=== PATIENT | female | born 1965 | race Caucasian/White ===

== ENCOUNTER 2017-02-02 23:20 | Emergency (ER) | payer MEDICARE ==
[~2017-02-02] VITALS: Ht 157.5 cm; Wt 66.2 kg
[2017-02-02] MEDS ORDERED: OXYCODONE HCL5 MG PO (23:45)
[2017-02-02] MEDS ORDERED: LOPRESSOR25 MG PO (23:46)
[2017-02-02] MEDS ORDERED: EFFEXOR XR75 MG PO (23:46)
[2017-02-02] MEDS ORDERED: LASIX 40 MG40 MG/TAB PO (23:46)
[2017-02-02] MEDS ORDERED: VISTARIL25 MG PO (23:47)
[2017-02-02] MEDS ORDERED: GABAPENTIN100 MG PO (23:47)
[2017-02-02] MEDS ORDERED: XANAX0.5 MG PO (23:48)
[2017-02-02] MEDS ORDERED: TRAZODONE50 MG PO (23:48)
[2017-02-02] MEDS ORDERED: ADDERALL30 MG PO (23:50)
[2017-02-02] MEDS ORDERED: ULTRAM50 M1 PO (23:54)
[2017-02-03 00:21] VITALS: BP 124/77
== END 2017-02-03 00:19 | disposition home or self-care (01) ==
LOC: ED 23:20
DX: M72.2 Plantar fascial fibromatosis (principal); W22.8XXA Striking against or struck by other objects, initial encounter; Y92.009 Unspecified place in unspecified non-institutional (private) residence as the place of occurrence of the external cause

== ENCOUNTER 2018-04-08 18:21 | Emergency (ER) | payer MEDICARE ==
[~2018-04-08] VITALS: Ht 157.5 cm; Wt 60.0 kg
[~2018-04-08 18:21] MED LIST: ADDERALL30 MG PO; EFFEXOR XR75 MG PO; GABAPENTIN100 MG PO; LASIX 40 MG40 MG/TAB PO; LOPRESSOR25 MG PO; OXYCODONE HCL5 MG PO; TRAZODONE50 MG PO; ULTRAM50 M1 PO; VISTARIL25 MG PO; XANAX0.5 MG PO
[2018-04-08] MEDS ORDERED: AMOXICILLIN500 MG PO (20:13)
[2018-04-08] MEDS ORDERED: NAPROSYN500 MG PO (20:13)
[2018-04-08 20:39] VITALS: BP 158/89
== END 2018-04-08 20:35 | disposition home or self-care (01) ==
LOC: ED 18:21
PROC: 0HQGXZZ Repair Left Hand Skin, External Approach (ICD-10-PCS; principal; 2018-04-08)
DX: S60.512A Abrasion of left hand, initial encounter (principal); S61.235A Puncture wound without foreign body of left ring finger without damage to nail, initial encounter; S63.615A Unspecified sprain of left ring finger, initial encounter; C90.00 Multiple myeloma not having achieved remission; N18.9 Chronic kidney disease, unspecified; I50.9 Heart failure, unspecified; F17.200 Nicotine dependence, unspecified, uncomplicated; W23.0XXA Caught, crushed, jammed, or pinched between moving objects, initial encounter

== ENCOUNTER 2018-08-09 09:51 | Observation (INO) | payer MEDICARE ==
[~2018-08-09] VITALS: Ht 157.5 cm; Wt 68.0 kg
[~2018-08-09 09:51] MED LIST changes: +AMOXICILLIN500 MG PO; +NAPROSYN500 MG PO
[2018-08-09 11:00] LABS: HEMATOCRIT 41.3 % (37.0-47.0); HEMOGLOBIN 13.2 g/dl (12.0-16.0); IMMATURE GRANULOCYTES 0.4 % (0.0-5.0); MEAN CELL VOLUME 87.5 fL CALC (80.0-100.0); NEUT# 5.66 thou/uL (2.00-7.15); RED BLOOD COUNT 4.72 mill/uL (4.20-5.60); RED CELL DISTRI WIDTH 13.6 % (11.5-15.5)
[2018-08-09] MEDS ORDERED: OXYCODONE HCL5 MG PO (11:00)
[2018-08-09] MEDS ORDERED: PROZAC40 MG PO (11:00)
[2018-08-09 11:12] LABS: ALBUMIN 4.6 g/dL (3.2-5.0); ALKALINE PHOSPHATASE 104 u/l (38-126); ANION GAP 14 (6-22 (CALC)); BILIRUBIN, TOTAL 0.6 mg/dL (0.0-1.4); BUN 19 mg/dL (7-17); BUN/CREATININE RATIO 14 (12-20 (CALC)); CARBON DIOXIDE 25 mmol/l (22-30); CHLORIDE 106 mmol/l (95-108); CREATININE 1.3 mg/dL (0.5-1.0); GFR 43 ML/MIN (>=60 (CALC)); GFR FOR AFR.AMER. 51 ML/MIN (>=60 (CALC)); SGOT/AST 38 u/l (14-36); SODIUM 140 mmol/l (137-146); TOTAL PROTEIN 7.9 g/dL (6.3-8.2)
[2018-08-09 11:24] LABS: MYOGLOBIN 45 ng/mL (0 - 62)
[2018-08-09 12:35] VITALS: BP 153/81
[2018-08-09 16:00] VITALS: BP 144/89
[2018-08-09 19:49] VITALS: BP 153/89
[2018-08-09 23:17] VITALS: BP 113/71
[2018-08-10 02:55] LABS: URINE BLOOD DIPSTICK NEGATIVE (NEGATIVE); URINE COLOR YELLOW; URINE GLUCOSE - DIPSTICK NEGATIVE (NEGATIVE); URINE KETONE TRACE mg/dL (NEGATIVE); URINE LEUK ESTERASE NEGATIVE (NEGATIVE); URINE NITRITE - DIPSTICK NEGATIVE (Negative); URINE PH 5.5 (4.5-8.0); URINE PROTEIN - DIPSTICK NEGATIVE (NEG-TRACE); URINE SPECIFIC GRAVITY >=1.030; URINE UROBILINOGEN - DIPSTICK 0.2 E.U./dL (0.2)
[2018-08-10 02:58] LABS: URINE BILIRUBIN - DIPSTICK NEGATIVE (NEGATIVE)
[2018-08-10 04:32] VITALS: BP 130/74
[2018-08-10 06:24] LABS: HEMATOCRIT 40.1 % (37.0-47.0); HEMOGLOBIN 12.8 g/dl (12.0-16.0); IMMATURE GRANULOCYTES 0.9 % (0.0-5.0); MEAN CELL VOLUME 87.6 fL CALC (80.0-100.0); MEAN CORPUSCULAR HGB 27.9 pG CALC (26.0-32.0); MEAN CORPUSCULAR HGB CONC 31.9 g/L CALC (32.0-36.0); NEUT# 5.8 thou/uL (2.00-7.15); RED BLOOD COUNT 4.58 mill/uL (4.20-5.60); RED CELL DISTRI WIDTH 13.5 % (11.5-15.5)
[2018-08-10 06:46] LABS: ALBUMIN 3.8 g/dL (3.2-5.0); BILIRUBIN, TOTAL 0.5 mg/dL (0.0-1.4); CHOLESTEROL HDL RATIO 2.8 (<4.4 (CALC)); CREATININE 1.2 mg/dL (0.5-1.0); POTASSIUM 3.9 mmol/l (3.5-5.1); TOTAL PROTEIN 6.7 g/dL (6.3-8.2)
[2018-08-10 08:30] VITALS: BP 125/78
[2018-08-10 12:00] VITALS: BP 135/79
[2018-08-10 16:00] VITALS: BP 141/88
[2018-08-10 19:00] VITALS: BP 166/77
[2018-08-11 00:18] VITALS: BP 127/79
[2018-08-11 04:10] VITALS: BP 143/91
[2018-08-11] MEDS ORDERED: GABAPENTIN100 MG PO (06:29)
[2018-08-11] MEDS ORDERED: OXYCODONE HCL5 MG PO (06:29)
[2018-08-11] MEDS ORDERED: EFFEXOR XR75 MG PO (06:30)
[2018-08-11] MEDS ORDERED: XANAX0.5 MG PO (06:30)
[2018-08-11] MEDS ORDERED: LORAZEPAM0.5 MG PO (08:48)
[2018-08-11 09:01] VITALS: BP 110/71
[2018-08-11 09:06] VITALS: BP 110/71
== END 2018-08-11 10:30 | disposition home or self-care (01) ==
LOC: ED 09:51 → ED-I 11:44 → ED 12:00 → MS2 12:01
PROVIDERS: Emergency Medicine; ADMIT Internal Medicine Geriatric Medicine; ATTEND Internal Medicine Geriatric Medicine
DX: R07.89 Other chest pain (principal); E85.9 Amyloidosis, unspecified; F41.1 Generalized anxiety disorder; J44.9 Chronic obstructive pulmonary disease, unspecified; I10 Essential (primary) hypertension; F32.9 Major depressive disorder, single episode, unspecified; F17.200 Nicotine dependence, unspecified, uncomplicated; M79.7 Fibromyalgia; M19.90 Unspecified osteoarthritis, unspecified site; Z85.79 Personal history of other malignant neoplasms of lymphoid, hematopoietic and related tissues; R06.02 Shortness of breath